=== PATIENT | male | born 1995 | race Caucasian/White ===

== ENCOUNTER 2024-04-03 23:56 | Inpatient (IN) | payer MEDICAID, OTHER ==
[~2024-04-03] VITALS: Ht 185.4 cm; Wt 102.6 kg
[~2024-04-03 23:56] MED LIST: CALCTAB5 PO; CATA0.1T PO; CLON-412 PO; DIPH50CA PO; DOCQ100C PO; ERYTGEL TOP; LORA10TA2 PO; NASA55AE; PERP2TAB PO; PROAAER INH; TRAZ50TA2 PO; ZOLO50TA PO
[2024-04-04 00:54] LABS: HEMOGLOBIN 14.3 g/dl (13.5-17.5); MEAN CORPUSCULAR HEMOGLOBIN 31.2 pg (27.0-33.0); MEAN CORPUSCULAR HGB CONC 34.9 g/dl (32.0-36.5); MEAN CORPUSCULAR VOLUME 89.5 fl (80.0-96.0); PLATELET COUNT, AUTOMATED 125 10^3/uL (150-450); RED BLOOD COUNT 4.58 10^6/uL (4.30-6.10); WHITE BLOOD COUNT 5.1 10^3/uL (4.0-10.0)
[2024-04-04 01:14] LABS: AMPHETAMINES LEVEL URINE NEGATIVE (NEGATIVE); BARBITURATES URINE NEGATIVE (NEGATIVE); BENZODIAZEPINES URINE NEGATIVE (NEGATIVE); COCAINE METABOLITE URINE NEGATIVE (NEGATIVE); METHADONE URINE NEGATIVE (NEGATIVE); OPIATES URINE NEGATIVE (NEGATIVE); PHENCYCLIDINE URINE NEGATIVE (NEGATIVE)
[2024-04-04 01:16] LABS: ETHYL ALCOHOL (ETHANOL) < 0.003 % (0.000-0.010)
[2024-04-04 01:18] LABS: ALKALINE PHOSPHATASE 69 U/L (46-116); ALT/SGPT 21 U/L (7.0-40); AST/SGOT 18 U/L (<34); BILIRUBIN,DIRECT 0.4 MG/DL (<0.4); BILIRUBIN,TOTAL 1.2 MG/DL (0.3-1.2); BLOOD UREA NITROGEN 10 MG/DL (9-23); CALCIUM LEVEL 9.2 MG/DL (8.5-10.1); CANNABINOIDS URINE POSITIVE (NEGATIVE); CARBON DIOXIDE LEVEL 28 MMOL/L (20-31); CHLORIDE LEVEL 108 MMOL/L (98-107); CREATININE FOR GFR 0.72 MG/DL (0.70-1.30); GLOMERULAR FILTRATION RATE > 60.0 (>60); GLUCOSE, FASTING 90 MG/DL (60-100); POTASSIUM SERUM 4.1 MMOL/L (3.5-5.1); SALICYLATE LEVEL < 3.0 MG/DL (<30); SODIUM LEVEL 142 MMOL/L (136-145); TOTAL PROTEIN 6.5 G/DL (5.7-8.2)
[2024-04-04] MEDS ORDERED: HOME MED LIST COMPLETE! XX SCH (04:55)
[2024-04-04] MEDS ORDERED: MOM 30ML SUSPENSION UDC PO PRN (06:00)
[2024-04-04] MEDS ORDERED: diphenhydrAMINE 25MG CAP PO PRN (06:00)
[2024-04-04] MEDS ORDERED: MAALOX 30 ML SUSP *UDC PO PRN (06:00)
[2024-04-04 09:58] VITALS: BP 148/80; TEMP 97.5; O2SAT 100
[2024-04-04] MEDS: ACETAMINOPHEN TAB 650MG DOSE (2X325MG) PO PRN (10:44)
[2024-04-04] MEDS: NICOTINE 21MG/24HR 1 EA TRANSDERMAL TD PRN (10:44)
[2024-04-04] MEDS: buPROPion **XL** TABLET 150MG (WELLBUTRIN XL) PO SCH (11:46)
[2024-04-04] MEDS: IBUPROFEN 400MG TAB PO PRN (11:49)
[2024-04-04 18:48] VITALS: BP 141/86; TEMP 98.2; O2SAT 100
[2024-04-04] MEDS: traZODone 50 MG TAB PO PRN (22:21)
[2024-04-05 06:19] VITALS: BP 126/77; TEMP 97.6; O2SAT 98
[2024-04-05 16:16] VITALS: BP 143/89; TEMP 98.6; O2SAT 99
[2024-04-05] MEDS: QUEtiapine FUMARATE 50MG TAB PO SCH (21:24)
[2024-04-06 06:20] VITALS: BP 151/83; TEMP 96.8; O2SAT 99
[2024-04-06 16:06] VITALS: BP 138/88; TEMP 97.8; O2SAT 98
[2024-04-06] MEDS: QUEtiapine FUMARATE 100 MG TAB PO SCH (20:30)
[2024-04-06] MEDS: traZODone 100 MG TAB PO PRN (20:30)
[2024-04-07 06:50] VITALS: BP 131/65; TEMP 97.6; O2SAT 100
[2024-04-07] MEDS: buPROPion **XL** TABLET 150MG (WELLBUTRIN XL) PO SCH (09:27)
[2024-04-08 06:46] VITALS: BP 134/73; TEMP 97.1; O2SAT 99
[2024-04-08 17:55] VITALS: BP 128/60; TEMP 98
[2024-04-08] MEDS: QUEtiapine FUMARATE 100 MG TAB PO SCH (20:54)
[2024-04-09 06:16] VITALS: BP 106/54; TEMP 97.3; O2SAT 100
[2024-04-09] MEDS ORDERED: QUET100T2 PO (09:52)
[2024-04-09] MEDS ORDERED: BUPR150T12 PO (09:52)
[2024-04-09] MEDS ORDERED: TRAZ-257 PO (09:52)
[2024-04-09] MEDS ORDERED: NICO21PAT TD (09:52)
== END 2024-04-09 11:42 | disposition home or self-care (01) | DRG 753 ==
LOC: M ED 23:56 → M ED INP 04-04 05:57 → M PSY 04-04 09:59
PROVIDERS: ADMIT Student in an Organized Health Care Education/Training Program; ATTEND Student in an Organized Health Care Education/Training Program
DX: F31.9 Bipolar disorder, unspecified (principal); Z91.148 Patient's other noncompliance with medication regimen for other reason; R45.851 Suicidal ideations; F90.9 Attention-deficit hyperactivity disorder, unspecified type; F15.90 Other stimulant use, unspecified, uncomplicated; F14.90 Cocaine use, unspecified, uncomplicated; F17.229 Nicotine dependence, chewing tobacco, with unspecified nicotine-induced disorders

== ENCOUNTER 2024-04-20 23:07 | Inpatient (IN) | payer MEDICAID ==
[~2024-04-20] VITALS: Ht 190.5 cm; Wt 103.0 kg
[~2024-04-20 23:07] MED LIST changes: +BUPR150T12 PO; +NICO21PAT TD; +QUET100T2 PO; +TRAZ-257 PO
[2024-04-20 23:36] LABS: HEMATOCRIT 39.4 % (42.0-52.0); MEAN CORPUSCULAR HEMOGLOBIN 30.7 pg (27.0-33.0); MEAN CORPUSCULAR HGB CONC 35.5 g/dl (32.0-36.5); MEAN CORPUSCULAR VOLUME 86.4 fl (80.0-96.0); PLATELET COUNT, AUTOMATED 110 10^3/uL (150-450); RED BLOOD COUNT 4.56 10^6/uL (4.30-6.10); WHITE BLOOD COUNT 4.5 10^3/uL (4.0-10.0)
[2024-04-21 00:05] LABS: ETHYL ALCOHOL (ETHANOL) 0.007 % (0.000-0.010)
[2024-04-21 00:07] LABS: ALBUMIN 4.1 G/DL (3.2-5.2); ALKALINE PHOSPHATASE 69 U/L (46-116); ALT/SGPT 19 U/L (7.0-40); AST/SGOT 21 U/L (<34); BILIRUBIN,DIRECT 0.5 MG/DL (<0.4); BILIRUBIN,TOTAL 1.3 MG/DL (0.3-1.2); BLOOD UREA NITROGEN 10 MG/DL (9-23); CARBON DIOXIDE LEVEL 25 MMOL/L (20-31); CHLORIDE LEVEL 105 MMOL/L (98-107); CREATININE FOR GFR 0.75 MG/DL (0.70-1.30); GLOMERULAR FILTRATION RATE > 60.0 (>60); GLUCOSE, FASTING 81 MG/DL (60-100); POTASSIUM SERUM 3.6 MMOL/L (3.5-5.1); SALICYLATE LEVEL < 3.0 MG/DL (<30); SODIUM LEVEL 140 MMOL/L (136-145); TOTAL PROTEIN 6.4 G/DL (5.7-8.2)
[2024-04-21 00:09] LABS: THYROID STIMULATING HORMONE 2.019 uIU/ML (0.55-4.78)
[2024-04-21 00:33] LABS: BARBITURATES URINE NEGATIVE (NEGATIVE); BENZODIAZEPINES URINE NEGATIVE (NEGATIVE); COCAINE METABOLITE URINE NEGATIVE (NEGATIVE); METHADONE URINE NEGATIVE (NEGATIVE); OPIATES URINE NEGATIVE (NEGATIVE); PHENCYCLIDINE URINE NEGATIVE (NEGATIVE)
[2024-04-21 00:34] LABS: AMPHETAMINES LEVEL URINE POSITIVE (NEGATIVE); CANNABINOIDS URINE POSITIVE (NEGATIVE)
[2024-04-21] MEDS ORDERED: traZODone 50 MG TAB PO PRN (01:05)
[2024-04-21] MEDS ORDERED: MAALOX 30 ML SUSP *UDC PO PRN (01:05)
[2024-04-21] MEDS ORDERED: MOM 30ML SUSPENSION UDC PO PRN (01:05)
[2024-04-21] MEDS ORDERED: MED REC CURRENTLY UNOBTAINABLE XX SCH (01:10)
[2024-04-21 03:03] VITALS: BP 132/62; TEMP 97.6; O2SAT 96
[2024-04-21] MEDS: buPROPion **XL** TABLET 150MG (WELLBUTRIN XL) PO SCH (09:00)
[2024-04-21] MEDS ORDERED: LORazepam 2 MG TAB PO PRN (11:45)
[2024-04-21] MEDS: MULTIVITAMINS/MINERALS THERAP 1 TAB PO SCH (12:17)
[2024-04-21] MEDS: THIAMINE 100 MG TAB PO SCH (12:17)
[2024-04-21] MEDS: FOLIC ACID 1MG TAB PO SCH (12:17)
[2024-04-21 16:16] LABS: FERRITIN 151.7 NG/ML (10.5-307.3); IRON (FE) 42 UG/DL (65-175)
[2024-04-21 16:18] LABS: VITAMIN B12 LEVEL 309 PG/ML (211-911)
[2024-04-21 16:30] LABS: HEPATITIS B SURFACE ANTIGEN NEGATIVE (NEGATIVE)
[2024-04-21 16:43] LABS: HIV 1&2 SCREEN NEGATIVE (NEGATIVE)
[2024-04-21 16:49] LABS: HEPATITIS B CORE ANTIBODY IGM NEGATIVE (NEGATIVE)
[2024-04-21 17:01] LABS: FOLATE 19.38 NG/ML (>5.4)
[2024-04-21 17:02] LABS: HEPATITIS C VIRUS ABY INDEX > 11.00 INDEX (<0.8)
[2024-04-21] MEDS: QUEtiapine FUMARATE 100 MG TAB PO PRN (21:52)
[2024-04-21] MEDS: traZODone 100 MG TAB PO PRN (21:52)
[2024-04-21 22:35] VITALS: BP 116/59
[2024-04-22] MEDS ORDERED: BUPR1FIL SL (06:18)
[2024-04-22] MEDS ORDERED: NICO1DIS12 TOP (06:18)
[2024-04-22] MEDS ORDERED: QUET100T2 PO (06:21)
[2024-04-22] MEDS ORDERED: BUPR-597 PO (06:21)
[2024-04-22] MEDS ORDERED: TRAZ-257 PO (06:21)
[2024-04-22] MEDS: BUPRENORPHINE/NALOXONE 8-2MG SUBLINGUAL TABLET(SUBOXONE) SL SCH (09:00)
[2024-04-22] MEDS: NICOTINE 21MG/24HR 1 EA TRANSDERMAL TD SCH (09:00)
[2024-04-22] MEDS ORDERED: HOME MED LIST COMPLETE! XX SCH (10:40)
[2024-04-22 16:00] VITALS: BP 131/71
[2024-04-22 18:51] VITALS: BP 131/71; TEMP 97.3
[2024-04-22] MEDS: QUEtiapine FUMARATE 100 MG TAB PO SCH (22:12)
[2024-04-23 06:11] VITALS: BP 126/71; TEMP 97.5; O2SAT 100
[2024-04-23 16:00] VITALS: BP 140/66
[2024-04-23 16:22] VITALS: BP 140/66; TEMP 97.2
[2024-04-24 06:35] VITALS: BP 121/58; TEMP 97.3; O2SAT 95
[2024-04-24 12:35] LABS: HCV RNA QUANTITATION <15 NOT DETECTED IU/mL (NOT DETECTED); HCV RNA log10 <1.18 NOT DETECTED Log IU/mL (NOT DETECTED)
[2024-04-24] MEDS: IBUPROFEN 400MG TAB PO PRN (17:30)
[2024-04-24 18:16] VITALS: BP 139/87; TEMP 97.3
[2024-04-24] MEDS: diphenhydrAMINE 25MG CAP PO PRN (22:25)
[2024-04-25 06:00] VITALS: BP 118/69; TEMP 96.9; O2SAT 98
[2024-04-25 17:09] VITALS: BP 101/88; TEMP 99.1; O2SAT 99
[2024-04-25] MEDS: ACETAMINOPHEN TAB 650MG DOSE (2X325MG) PO PRN (17:50)
== END 2024-04-26 12:40 | disposition home or self-care (01) | DRG 753 ==
LOC: EDBD 23:07 → M ED 23:07 → M ED INP 04-21 01:01 → M PSY 04-21 03:05
PROVIDERS: ADMIT Student in an Organized Health Care Education/Training Program; ATTEND Student in an Organized Health Care Education/Training Program
DX: F31.9 Bipolar disorder, unspecified (principal); F90.9 Attention-deficit hyperactivity disorder, unspecified type; F60.2 Antisocial personality disorder; R45.851 Suicidal ideations; F15.90 Other stimulant use, unspecified, uncomplicated; F14.90 Cocaine use, unspecified, uncomplicated; F17.290 Nicotine dependence, other tobacco product, uncomplicated; D69.6 Thrombocytopenia, unspecified; Z56.0 Unemployment, unspecified; Z76.5 Malingerer [conscious simulation]; Z79.899 Other long term (current) drug therapy

== ENCOUNTER 2024-04-27 21:57 | Emergency (ER) | payer MEDICAID ==
[~2024-04-27] VITALS: Ht 185.4 cm; Wt 101.6 kg
[~2024-04-27 21:57] MED LIST changes: +BUPR-597 PO; +BUPR1FIL SL; +NICO1DIS12 TOP
[2024-04-27] MEDS ORDERED: HOME MED LIST COMPLETE! XX SCH (22:50)
[2024-04-27] MEDS: BUPRENORPHINE/NALOXONE 8-2MG SUBLINGUAL TABLET(SUBOXONE) SL SCH (23:37)
[2024-04-27 23:50] LABS: ETHYL ALCOHOL (ETHANOL) < 0.003 % (0.000-0.010)
[2024-04-27 23:52] LABS: ALBUMIN 4.2 G/DL (3.2-5.2); ALKALINE PHOSPHATASE 70 U/L (46-116); ALT/SGPT 24 U/L (7.0-40); AST/SGOT 24 U/L (<34); BILIRUBIN,DIRECT 0.3 MG/DL (<0.4); BLOOD UREA NITROGEN 21 MG/DL (9-23); CALCIUM LEVEL 9.6 MG/DL (8.5-10.1); CARBON DIOXIDE LEVEL 29 MMOL/L (20-31); CHLORIDE LEVEL 104 MMOL/L (98-107); CREATININE FOR GFR 0.75 MG/DL (0.70-1.30); GLOMERULAR FILTRATION RATE > 60.0 (>60); GLUCOSE, FASTING 91 MG/DL (60-100); POTASSIUM SERUM 3.8 MMOL/L (3.5-5.1); SALICYLATE LEVEL < 3.0 MG/DL (<30); SODIUM LEVEL 139 MMOL/L (136-145); TOTAL PROTEIN 6.5 G/DL (5.7-8.2)
[2024-04-27 23:54] LABS: THYROID STIMULATING HORMONE 1.281 uIU/ML (0.55-4.78)
[2024-04-27 23:58] LABS: HEMATOCRIT 41.3 % (42.0-52.0); HEMOGLOBIN 14.6 g/dl (13.5-17.5); MEAN CORPUSCULAR HEMOGLOBIN 31.3 pg (27.0-33.0); MEAN CORPUSCULAR HGB CONC 35.4 g/dl (32.0-36.5); MEAN CORPUSCULAR VOLUME 88.4 fl (80.0-96.0); PLATELET COUNT, AUTOMATED 132 10^3/uL (150-450); RED BLOOD COUNT 4.67 10^6/uL (4.30-6.10)
[2024-04-28 00:13] LABS: BARBITURATES URINE NEGATIVE (NEGATIVE); BENZODIAZEPINES URINE NEGATIVE (NEGATIVE); COCAINE METABOLITE URINE NEGATIVE (NEGATIVE); METHADONE URINE NEGATIVE (NEGATIVE); OPIATES URINE NEGATIVE (NEGATIVE); PHENCYCLIDINE URINE NEGATIVE (NEGATIVE)
[2024-04-28 00:14] LABS: AMPHETAMINES LEVEL URINE POSITIVE (NEGATIVE); CANNABINOIDS URINE POSITIVE (NEGATIVE)
[2024-04-28] MEDS: traZODone 100 MG TAB PO ONE (01:50)
[2024-04-28] MEDS: QUEtiapine FUMARATE 100 MG TAB PO ONE (01:50)
[2024-04-28] MEDS: NICOTINE 21MG/24HR 1 EA TRANSDERMAL TD ONE (01:50)
[2024-04-28] MEDS: ACETAMINOPHEN TAB 650MG DOSE (2X325MG) PO ONE ×2 (01:51→21:27)
[2024-04-28] MEDS: ONDANSETRON 4MG TAB PO ONE (02:45)
[2024-04-28] MEDS ORDERED: cloNIDine 0.1MG TABLET PO PRN (22:40)
[2024-04-28] MEDS: QUEtiapine FUMARATE 100 MG TAB PO SCH (23:08)
[2024-04-28] MEDS: traZODone 100 MG TAB PO PRN (23:08)
[2024-04-29] MEDS: buPROPion **XL** TABLET 150MG (WELLBUTRIN XL) PO SCH (09:41)
[2024-04-29] MEDS: NICOTINE 21MG/24HR 1 EA TRANSDERMAL TD PRN (13:29)
[2024-04-29 13:40] VITALS: BP 141/88; TEMP 98.2; O2SAT 99
== END 2024-04-29 13:42 | disposition home or self-care (01) ==
LOC: M ED 21:57
DX: F32.A Depression, unspecified (principal); F19.14 Other psychoactive substance abuse with psychoactive substance-induced mood disorder; F90.9 Attention-deficit hyperactivity disorder, unspecified type; F31.9 Bipolar disorder, unspecified; B17.10 Acute hepatitis C without hepatic coma; Z79.899 Other long term (current) drug therapy

== ENCOUNTER 2024-09-26 16:11 | Emergency (ER) | payer MEDICAID, OTHER ==
[~2024-09-26] VITALS: Ht 185.4 cm; Wt 89.6 kg
[2024-09-26 16:35] LABS: HEMATOCRIT 47.7 % (42.0-52.0); MEAN CORPUSCULAR HEMOGLOBIN 30.2 pg (27.0-33.0); MEAN CORPUSCULAR HGB CONC 33.5 g/dl (32.0-36.5); PLATELET COUNT, AUTOMATED 211 10^3/uL (150-450); WHITE BLOOD COUNT 6.3 10^3/uL (4.0-10.0)
[2024-09-26 17:02] LABS: ETHYL ALCOHOL (ETHANOL) < 0.003 % (0.000-0.010)
[2024-09-26 17:03] LABS: SALICYLATE LEVEL < 3.0 MG/DL (<30)
[2024-09-26 17:04] LABS: ALBUMIN 3.8 G/DL (3.2-5.2); ALKALINE PHOSPHATASE 95 U/L (40-129); ALT/SGPT 13 U/L (7.0-40); AST/SGOT 9 U/L (<34); BILIRUBIN,DIRECT 0.2 MG/DL (<0.4); BILIRUBIN,TOTAL 0.5 MG/DL (0.3-1.2); BLOOD UREA NITROGEN 8 MG/DL (9-23); CALCIUM LEVEL 9.3 MG/DL (8.5-10.1); CARBON DIOXIDE LEVEL 27 MMOL/L (20-31); CHLORIDE LEVEL 109 MMOL/L (98-107); CREATININE FOR GFR 0.68 MG/DL (0.70-1.30); GLOMERULAR FILTRATION RATE > 60.0 (>60); GLUCOSE, FASTING 82 MG/DL (60-100); POTASSIUM SERUM 4.6 MMOL/L (3.5-5.1); SODIUM LEVEL 142 MMOL/L (136-145); TOTAL PROTEIN 7.3 G/DL (5.7-8.2)
[2024-09-26 17:05] LABS: THYROID STIMULATING HORMONE 1.216 uIU/ML (0.55-4.78)
[2024-09-26 17:24] LABS: AMPHETAMINES LEVEL URINE NEGATIVE (NEGATIVE); BARBITURATES URINE NEGATIVE (NEGATIVE); BENZODIAZEPINES URINE NEGATIVE (NEGATIVE); COCAINE METABOLITE URINE NEGATIVE (NEGATIVE); METHADONE URINE NEGATIVE (NEGATIVE)
[2024-09-26 17:25] LABS: OPIATES URINE NEGATIVE (NEGATIVE); PHENCYCLIDINE URINE NEGATIVE (NEGATIVE)
[2024-09-26 17:31] LABS: CANNABINOIDS URINE POSITIVE (NEGATIVE)
[2024-09-26] MEDS ORDERED: HOME MED LIST COMPLETE! XX SCH (18:00)
[2024-09-26] MEDS ORDERED: MED REC COMMENT (18:00)
[2024-09-27 08:27] VITALS: BP 137/83; TEMP 97.5; O2SAT 97
== END 2024-09-27 10:50 | disposition home or self-care (01) ==
LOC: M ED 16:11
DX: F12.188 Cannabis abuse with other cannabis-induced disorder (principal); F60.2 Antisocial personality disorder; Z76.5 Malingerer [conscious simulation]; F19.10 Other psychoactive substance abuse, uncomplicated; Z59.00 Homelessness unspecified; F32.A Depression, unspecified; F90.9 Attention-deficit hyperactivity disorder, unspecified type; Z79.899 Other long term (current) drug therapy

== ENCOUNTER 2024-11-14 23:02 | Inpatient (IN) | payer OTHER ==
[~2024-11-14] VITALS: Ht 185.4 cm; Wt 88.0 kg
[~2024-11-14 23:02] MED LIST changes: +MED REC COMMENT
[2024-11-15 00:25] LABS: ETHYL ALCOHOL (ETHANOL) 0.004 % (0.000-0.010)
[2024-11-15 00:26] LABS: SALICYLATE LEVEL < 3.0 MG/DL (<30)
[2024-11-15 00:27] LABS: ALBUMIN 3.5 G/DL (3.2-5.2); ALKALINE PHOSPHATASE 86 U/L (40-129); ALT/SGPT 12 U/L (7.0-40); AST/SGOT 11 U/L (<34); BILIRUBIN,DIRECT 0.2 MG/DL (<0.4); BILIRUBIN,TOTAL 0.5 MG/DL (0.3-1.2); BLOOD UREA NITROGEN 14 MG/DL (9-23); CARBON DIOXIDE LEVEL 28 MMOL/L (20-31); CHLORIDE LEVEL 108 MMOL/L (98-107); CREATININE FOR GFR 0.71 MG/DL (0.70-1.30); GLOMERULAR FILTRATION RATE > 60.0 (>60); GLUCOSE, FASTING 123 MG/DL (60-100); POTASSIUM SERUM 3.6 MMOL/L (3.5-5.1); SODIUM LEVEL 144 MMOL/L (136-145)
[2024-11-15 00:29] LABS: THYROID STIMULATING HORMONE 1.008 uIU/ML (0.55-4.78)
[2024-11-15 00:30] LABS: HEMATOCRIT 37.3 % (42.0-52.0); HEMOGLOBIN 12.8 g/dl (13.5-17.5); MEAN CORPUSCULAR HEMOGLOBIN 29.8 pg (27.0-33.0); MEAN CORPUSCULAR HGB CONC 34.3 g/dl (32.0-36.5); MEAN CORPUSCULAR VOLUME 86.7 fl (80.0-96.0); PLATELET COUNT, AUTOMATED 127 10^3/uL (150-450)
[2024-11-15 02:38] LABS: BARBITURATES URINE NEGATIVE (NEGATIVE); BENZODIAZEPINES URINE NEGATIVE (NEGATIVE); METHADONE URINE NEGATIVE (NEGATIVE); OPIATES URINE NEGATIVE (NEGATIVE); PHENCYCLIDINE URINE NEGATIVE (NEGATIVE)
[2024-11-15 02:39] LABS: COCAINE METABOLITE URINE NEGATIVE (NEGATIVE)
[2024-11-15 02:44] LABS: AMPHETAMINES LEVEL URINE POSITIVE (NEGATIVE); CANNABINOIDS URINE POSITIVE (NEGATIVE)
[2024-11-15] MEDS: NICOTINE 21MG/24HR 1 EA TRANSDERMAL TD SCH (09:00)
[2024-11-15] MEDS ORDERED: BUPR-365 PO (12:02)
[2024-11-15] MEDS ORDERED: BUPR1FIL37 SL (12:02)
[2024-11-15] MEDS ORDERED: HOME MED LIST COMPLETE! XX SCH (12:05)
[2024-11-15] MEDS ORDERED: IBUPROFEN 400MG TAB PO PRN (13:15)
[2024-11-15] MEDS ORDERED: MOM 30ML SUSPENSION UDC PO PRN (13:15)
[2024-11-15] MEDS ORDERED: MAALOX 30 ML SUSP *UDC PO PRN (13:15)
[2024-11-15 14:21] VITALS: BP 149/96; TEMP 97.4; O2SAT 99
[2024-11-15] MEDS: traZODone 50 MG TAB PO PRN (21:08)
[2024-11-15] MEDS: diphenhydrAMINE 25MG CAP PO PRN (21:08)
[2024-11-16 06:31] VITALS: BP 144/81; TEMP 97.2; O2SAT 97
[2024-11-16 14:02] LABS: FOLATE 20.61 NG/ML (>5.4)
[2024-11-16 17:00] LABS: IRON (FE) 65 UG/DL (65-175); PERCENT SATURATION 28.4 % (19.7-50.0); TOTAL IRON BINDING CAPACITY 229 UG/DL (250-425)
[2024-11-16 17:02] LABS: FERRITIN 175.7 NG/ML (10.5-307.3)
[2024-11-16 17:03] LABS: VITAMIN B12 LEVEL 411 PG/ML (211-911)
[2024-11-17] MEDS ORDERED: cloNIDine 0.1MG TABLET PO PRN (14:05)
[2024-11-17] MEDS: buPROPion **XL** TABLET 150MG (WELLBUTRIN XL) PO SCH (15:55)
[2024-11-17] MEDS: QUEtiapine FUMARATE 100 MG TAB PO SCH (20:08)
[2024-11-17] MEDS: ACETAMINOPHEN 325 MG TAB PO PRN (20:09)
[2024-11-18] MEDS: NICOTINE POLACRILEX 2 MG GUM PO PRN (20:56)
== END 2024-11-19 11:38 | disposition home or self-care (01) | DRG 753 ==
LOC: M ED 23:02 → M ED INP 11-15 13:12 → M PSY 11-15 14:25
PROVIDERS: ADMIT Psychiatry & Neurology Psychiatry; ATTEND Psychiatry & Neurology Psychiatry
DX: F31.9 Bipolar disorder, unspecified (principal); F60.2 Antisocial personality disorder; R45.851 Suicidal ideations; R45.850 Homicidal ideations; F15.90 Other stimulant use, unspecified, uncomplicated; F14.90 Cocaine use, unspecified, uncomplicated; Z79.899 Other long term (current) drug therapy; D69.6 Thrombocytopenia, unspecified; D64.9 Anemia, unspecified

== ENCOUNTER 2025-01-17 13:57 | Emergency (ER) | payer OTHER, MEDICAID ==
[~2025-01-17] VITALS: Ht 185.4 cm; Wt 90.8 kg
[~2025-01-17 13:57] MED LIST changes: +BUPR-365 PO; +BUPR1FIL37 SL
[2025-01-17 14:05] VITALS: BP 130/94; TEMP 98.4; O2SAT 99
[2025-01-17] MEDS: KETOROLAC 60MG 2ML VIAL IM ONE (15:35)
[2025-01-17] MEDS ORDERED: AMOX875T2 PO (15:37)
== END 2025-01-17 15:41 | disposition home or self-care (01) ==
LOC: M ED 13:57
DX: K04.7 Periapical abscess without sinus (principal); K12.0 Recurrent oral aphthae; Z79.2 Long term (current) use of antibiotics; Z79.899 Other long term (current) drug therapy

== ENCOUNTER 2025-01-27 19:35 | Emergency (ER) | payer OTHER ==
[~2025-01-27] VITALS: Ht 185.4 cm; Wt 93.8 kg
[~2025-01-27 19:35] MED LIST changes: +AMOX875T2 PO
[2025-01-27 19:55] VITALS: BP 167/87; TEMP 97.6; O2SAT 99
== END 2025-01-27 22:15 | disposition left against medical advice (07) ==
LOC: EDBD 19:35 → M ED 19:35
DX: Z53.21 Procedure and treatment not carried out due to patient leaving prior to being seen by health care provider (principal)

== ENCOUNTER 2025-01-31 21:15 | Inpatient (IN) | payer OTHER ==
[~2025-01-31] VITALS: Ht 185.4 cm; Wt 91.2 kg
[2025-01-31 21:53] LABS: HEMATOCRIT 36.9 % (42.0-52.0); HEMOGLOBIN 13.1 g/dl (13.5-17.5); MEAN CORPUSCULAR HGB CONC 35.5 g/dl (32.0-36.5); MEAN CORPUSCULAR VOLUME 84.6 fl (80.0-96.0); PLATELET COUNT, AUTOMATED 141 10^3/uL (150-450); RED BLOOD COUNT 4.36 10^6/uL (4.30-6.10); WHITE BLOOD COUNT 7.4 10^3/uL (4.0-10.0)
[2025-01-31 22:15] LABS: ETHYL ALCOHOL (ETHANOL) < 0.003 % (0.000-0.010)
[2025-01-31 22:16] LABS: SALICYLATE LEVEL < 3.0 MG/DL (<30)
[2025-01-31 22:17] LABS: ALBUMIN 3.9 G/DL (3.2-5.2); ALKALINE PHOSPHATASE 68 U/L (40-129); ALT/SGPT 24 U/L (7.0-40); AST/SGOT 36 U/L (<34); BILIRUBIN,DIRECT 0.3 MG/DL (<0.4); BILIRUBIN,TOTAL 0.8 MG/DL (0.3-1.2); BLOOD UREA NITROGEN 19 MG/DL (9-23); CALCIUM LEVEL 9.4 MG/DL (8.5-10.1); CARBON DIOXIDE LEVEL 29 MMOL/L (20-31); CHLORIDE LEVEL 99 MMOL/L (98-107); CREATININE FOR GFR 0.67 MG/DL (0.70-1.30); GLOMERULAR FILTRATION RATE > 60.0 (>60); GLUCOSE, FASTING 108 MG/DL (60-100); POTASSIUM SERUM 3.5 MMOL/L (3.5-5.1); SODIUM LEVEL 138 MMOL/L (136-145); TOTAL PROTEIN 6.6 G/DL (5.7-8.2)
[2025-01-31 22:19] LABS: THYROID STIMULATING HORMONE 4.809 uIU/ML (0.55-4.78)
[2025-02-01 00:32] LABS: BARBITURATES URINE NEGATIVE (NEGATIVE); BENZODIAZEPINES URINE NEGATIVE (NEGATIVE)
[2025-02-01 00:33] LABS: AMPHETAMINES LEVEL URINE POSITIVE (NEGATIVE); CANNABINOIDS URINE POSITIVE (NEGATIVE); COCAINE METABOLITE URINE NEGATIVE (NEGATIVE); METHADONE URINE NEGATIVE (NEGATIVE); OPIATES URINE NEGATIVE (NEGATIVE); PHENCYCLIDINE URINE NEGATIVE (NEGATIVE)
[2025-02-01] MEDS ORDERED: MOM 30ML SUSPENSION UDC PO PRN (02:35)
[2025-02-01] MEDS ORDERED: OLANZapine ORAL DISINTEGRATING TAB 5MG PO PRN (02:35)
[2025-02-01] MEDS ORDERED: MAALOX 30 ML SUSP *UDC PO PRN (02:35)
[2025-02-01] MEDS ORDERED: ACETAMINOPHEN 325 MG TAB PO PRN (02:35)
[2025-02-01 03:03] VITALS: TEMP 97.1; O2SAT 96
[2025-02-01 03:30] VITALS: BP 149/79; TEMP 97.1; O2SAT 96
[2025-02-01] MEDS: diphenhydrAMINE 25MG CAP PO PRN (03:36)
[2025-02-01] MEDS: IBUPROFEN 400MG TAB PO PRN (03:37)
[2025-02-01] MEDS: traZODone 50 MG TAB PO PRN (03:38)
[2025-02-01] MEDS ORDERED: HOME MED LIST COMPLETE! XX SCH (20:15)
[2025-02-01] MEDS: QUEtiapine FUMARATE 50MG TAB PO SCH (20:43)
[2025-02-01] MEDS ORDERED: cloNIDine 0.1MG TABLET PO PRN (21:30)
[2025-02-02] MEDS: BUPRENORPHINE/NALOXONE 2-0.5MG SUBLINGUAL TABLET(SUBOXONE) SL SCH (03:42)
[2025-02-02] MEDS ORDERED: buPROPion **XL** TABLET 150MG (WELLBUTRIN XL) PO SCH (09:00)
[2025-02-02] MEDS: buPROPion **XL** TABLET 150MG (WELLBUTRIN XL) PO SCH (09:18)
[2025-02-02] MEDS: NICOTINE POLACRILEX 2 MG GUM PO PRN (15:36)
[2025-02-02] MEDS: QUEtiapine FUMARATE 100 MG TAB PO SCH (21:02)
[2025-02-02] MEDS: traZODone 50 MG TAB PO PRN (21:05)
[2025-02-03 06:40] VITALS: BP 122/60; TEMP 97.1; O2SAT 98
[2025-02-05] MEDS ORDERED: CLON-412 PO (07:52)
[2025-02-05] MEDS ORDERED: BUPR-365 PO (07:52)
== END 2025-02-05 11:07 | disposition home or self-care (01) | DRG 753 ==
LOC: M ED 21:15 → M ED INP 02-01 02:33 → M PSY 02-01 03:02
PROVIDERS: ADMIT Psychiatry & Neurology Neurology; ATTEND Psychiatry & Neurology Neurology
DX: F31.5 Bipolar disorder, current episode depressed, severe, with psychotic features (principal); F15.20 Other stimulant dependence, uncomplicated; F41.9 Anxiety disorder, unspecified; F90.9 Attention-deficit hyperactivity disorder, unspecified type; F60.2 Antisocial personality disorder; Z76.5 Malingerer [conscious simulation]; Z91.199 Patient's noncompliance with other medical treatment and regimen due to unspecified reason; Z79.899 Other long term (current) drug therapy

== ENCOUNTER 2025-02-26 15:45 | Inpatient (IN) | payer MEDICAID, OTHER ==
[~2025-02-26] VITALS: Ht 185.4 cm; Wt 81.8 kg
[2025-02-26 15:54] VITALS: TEMP 98
[2025-02-26 16:35] LABS: HEMATOCRIT 44.9 % (42.0-52.0); HEMOGLOBIN 15.2 g/dl (13.5-17.5); MEAN CORPUSCULAR HEMOGLOBIN 29.4 pg (27.0-33.0); MEAN CORPUSCULAR HGB CONC 33.9 g/dl (32.0-36.5); MEAN CORPUSCULAR VOLUME 86.8 fl (80.0-96.0); PLATELET COUNT, AUTOMATED 180 10^3/uL (150-450); RED BLOOD COUNT 5.17 10^6/uL (4.30-6.10); WHITE BLOOD COUNT 7.1 10^3/uL (4.0-10.0)
[2025-02-26 16:49] LABS: ETHYL ALCOHOL (ETHANOL) < 0.003 % (0.000-0.010)
[2025-02-26 16:51] LABS: ALBUMIN 3.8 G/DL (3.2-5.2); ALKALINE PHOSPHATASE 85 U/L (40-129); ALT/SGPT 18 U/L (7.0-40); AST/SGOT 11 U/L (<34); BILIRUBIN,DIRECT 0.3 MG/DL (<0.4); BILIRUBIN,TOTAL 0.8 MG/DL (0.3-1.2); BLOOD UREA NITROGEN 8 MG/DL (9-23); CALCIUM LEVEL 8.7 MG/DL (8.5-10.1); CARBON DIOXIDE LEVEL 29 MMOL/L (20-31); CHLORIDE LEVEL 103 MMOL/L (98-107); GLOMERULAR FILTRATION RATE > 90.0 (>60); GLUCOSE, FASTING 83 MG/DL (60-100); POTASSIUM SERUM 4.5 MMOL/L (3.5-5.1); SALICYLATE LEVEL < 3.0 MG/DL (<30); SODIUM LEVEL 139 MMOL/L (136-145); TOTAL PROTEIN 6.7 G/DL (5.7-8.2)
[2025-02-26 16:53] LABS: THYROID STIMULATING HORMONE 0.869 uIU/ML (0.55-4.78)
[2025-02-26 16:59] LABS: AMPHETAMINES LEVEL URINE NEGATIVE (NEGATIVE); BARBITURATES URINE NEGATIVE (NEGATIVE); COCAINE METABOLITE URINE NEGATIVE (NEGATIVE)
[2025-02-26 17:00] LABS: BENZODIAZEPINES URINE NEGATIVE (NEGATIVE); METHADONE URINE NEGATIVE (NEGATIVE); OPIATES URINE NEGATIVE (NEGATIVE); PHENCYCLIDINE URINE NEGATIVE (NEGATIVE)
[2025-02-26 17:03] LABS: CANNABINOIDS URINE POSITIVE (NEGATIVE)
[2025-02-26 17:50] VITALS: BP 170/110
[2025-02-26] MEDS: cloNIDine 0.1MG TABLET PO ONE ×2 (17:50→19:25)
[2025-02-26] MEDS ORDERED: BUPR150T12 PO (18:04)
[2025-02-26] MEDS ORDERED: BUPR1FIL SL (18:04)
[2025-02-26] MEDS ORDERED: QUET100T2 PO (18:04)
[2025-02-26] MEDS ORDERED: HOME MED LIST COMPLETE! XX SCH (18:05)
[2025-02-26] MEDS ORDERED: traZODone 50 MG TAB PO PRN (19:00)
[2025-02-26] MEDS ORDERED: MAALOX 30 ML SUSP *UDC PO PRN (19:00)
[2025-02-26] MEDS ORDERED: MOM 30ML SUSPENSION UDC PO PRN (19:00)
[2025-02-26] MEDS ORDERED: ACETAMINOPHEN 325 MG TAB PO PRN (19:00)
[2025-02-26] MEDS ORDERED: IBUPROFEN 400MG TAB PO PRN (19:00)
[2025-02-26 20:53] VITALS: BP 140/88; O2SAT 97
[2025-02-27] MEDS ORDERED: cloNIDine 0.1MG TABLET PO PRN (14:30)
[2025-02-27] MEDS: buPROPion **XL** TABLET 150MG (WELLBUTRIN XL) PO SCH (15:02)
[2025-02-27] MEDS: NICOTINE POLACRILEX 2 MG GUM PO PRN (16:24)
[2025-02-27] MEDS: diphenhydrAMINE 25MG CAP PO PRN (20:23)
[2025-02-27] MEDS: traZODone 50 MG TAB PO PRN (20:23)
[2025-02-27] MEDS: QUEtiapine FUMARATE 100 MG TAB PO SCH (20:23)
[2025-03-01] MEDS ORDERED: HYDR-4570 PO (12:12)
[2025-03-01] MEDS ORDERED: QUET100T2 PO (12:12)
[2025-03-01] MEDS ORDERED: TRAZ-252 PO (12:12)
[2025-03-01] MEDS ORDERED: CLONI1TA PO (12:12)
[2025-03-01] MEDS ORDERED: BUPR150T12 PO (12:12)
== END 2025-03-01 13:20 | disposition home or self-care (01) | DRG 753 ==
LOC: M ED 15:45 → M ED INP 18:56 → M PSY 21:42
PROVIDERS: ADMIT Psychiatry & Neurology Neurology; ATTEND Psychiatry & Neurology Neurology
DX: F31.30 Bipolar disorder, current episode depressed, mild or moderate severity, unspecified (principal); F15.20 Other stimulant dependence, uncomplicated; F60.2 Antisocial personality disorder; F41.9 Anxiety disorder, unspecified; R45.851 Suicidal ideations; F17.220 Nicotine dependence, chewing tobacco, uncomplicated; Z79.899 Other long term (current) drug therapy

== ENCOUNTER 2025-03-25 03:09 | Emergency (ER) | payer MEDICAID, OTHER ==
[~2025-03-25] VITALS: Ht 185.4 cm; Wt 94.0 kg
[~2025-03-25 03:09] MED LIST changes: -BUPR-597 PO; +BUPR-766 PO; +CLONI1TA PO; +HYDR-4570 PO; +TRAZ-252 PO
[2025-03-25] MEDS: NS (Normal Saline) 0.9% 1,000 ML IV ONE (04:16)
[2025-03-25 04:36] LABS: BASO % 0.2 % (0.0-1.0); EOS # 0.1 10^3/uL (0.0-0.5); EOS % 1.3 % (0.0-3.0); HEMATOCRIT 38.7 % (42.0-52.0); HEMOGLOBIN 13.4 g/dl (13.5-17.5); LYMPH % 18.8 % (24.0-44.0); MEAN CORPUSCULAR HEMOGLOBIN 30.8 pg (27.0-33.0); MEAN CORPUSCULAR HGB CONC 34.6 g/dl (32.0-36.5); MONO # 0.3 10^3/uL (0.0-0.8); MONO % 6.3 % (2.0-8.0); NEUTROPHILS # 3.9 10^3/uL (1.5-8.5); PLATELET COUNT, AUTOMATED 121 10^3/uL (150-450); RED BLOOD COUNT 4.35 10^6/uL (4.30-6.10); WHITE BLOOD COUNT 5.4 10^3/uL (4.0-10.0)
[2025-03-25 04:56] LABS: ETHYL ALCOHOL (ETHANOL) < 0.003 % (0.000-0.010)
[2025-03-25 04:58] LABS: ALBUMIN 3.6 G/DL (3.2-5.2); ALKALINE PHOSPHATASE 63 U/L (40-129); ALT/SGPT 16 U/L (7.0-40); AST/SGOT 11 U/L (<34); BILIRUBIN,DIRECT 0.2 MG/DL (<0.4); BILIRUBIN,TOTAL 0.4 MG/DL (0.3-1.2); BLOOD UREA NITROGEN 19 MG/DL (9-23); CALCIUM LEVEL 8.3 MG/DL (8.5-10.1); CARBON DIOXIDE LEVEL 28 MMOL/L (20-31); CHLORIDE LEVEL 107 MMOL/L (98-107); CPK CREATINE PHOSPHOKINASE 47 U/L (46-171); GLOMERULAR FILTRATION RATE > 90.0 (>60); GLUCOSE, FASTING 104 MG/DL (60-100); POTASSIUM SERUM 3.6 MMOL/L (3.5-5.1); SALICYLATE LEVEL < 3.0 MG/DL (<30); SODIUM LEVEL 144 MMOL/L (136-145)
[2025-03-25 05:00] LABS: THYROID STIMULATING HORMONE 4.608 uIU/ML (0.55-4.78)
[2025-03-25 07:23] LABS: BARBITURATES URINE NEGATIVE (NEGATIVE); BENZODIAZEPINES URINE NEGATIVE (NEGATIVE); METHADONE URINE NEGATIVE (NEGATIVE); OPIATES URINE NEGATIVE (NEGATIVE); PHENCYCLIDINE URINE NEGATIVE (NEGATIVE)
[2025-03-25 07:24] LABS: AMPHETAMINES LEVEL URINE POSITIVE (NEGATIVE); CANNABINOIDS URINE POSITIVE (NEGATIVE); COCAINE METABOLITE URINE POSITIVE (NEGATIVE)
[2025-03-25] MEDS ORDERED: NARC1SPR (08:50)
[2025-03-25 08:59] VITALS: BP 128/66; TEMP 97.3; O2SAT 98
== END 2025-03-25 09:04 | disposition home or self-care (01) ==
LOC: M ED 03:09 → EDBD 03:09 → M ED 09:04
DX: F11.20 Opioid dependence, uncomplicated (principal); F14.10 Cocaine abuse, uncomplicated; F15.10 Other stimulant abuse, uncomplicated; F12.10 Cannabis abuse, uncomplicated; I45.81 Long QT syndrome; F32.A Depression, unspecified; F31.9 Bipolar disorder, unspecified; F17.200 Nicotine dependence, unspecified, uncomplicated; Z79.899 Other long term (current) drug therapy

== ENCOUNTER 2025-09-19 01:17 | Emergency (ER) | payer OTHER ==
[~2025-09-19] VITALS: Ht 185.4 cm; Wt 84.5 kg
[~2025-09-19 01:17] MED LIST changes: +HYDR-3364 PO; -HYDR-4570 PO; +NARC1SPR
[2025-09-19 02:03] LABS: PLATELET COUNT, AUTOMATED 137 10^3/uL (150-450)
[2025-09-19 02:20] LABS: ETHYL ALCOHOL (ETHANOL) < 0.003 % (0.000-0.010)
[2025-09-19 02:22] LABS: ALT/SGPT 13 U/L (7.0-40); AST/SGOT 16 U/L (<34); CALCIUM LEVEL 8.6 MG/DL (8.5-10.1); CARBON DIOXIDE LEVEL 26 MMOL/L (20-31); CHLORIDE LEVEL 108 MMOL/L (98-107); CREATININE FOR GFR 0.77 MG/DL (0.70-1.30); GLOMERULAR FILTRATION RATE > 90.0 (>60); POTASSIUM SERUM 4.0 MMOL/L (3.5-5.1); SALICYLATE LEVEL < 3.0 MG/DL (<30); SODIUM LEVEL 144 MMOL/L (136-145)
[2025-09-19 03:06] VITALS: BP 130/77; TEMP 96.7; O2SAT 100
[2025-09-19 03:24] LABS: PHENCYCLIDINE URINE NEGATIVE (NEGATIVE)
[2025-09-19 03:25] LABS: AMPHETAMINES LEVEL URINE POSITIVE (NEGATIVE); BARBITURATES URINE NEGATIVE (NEGATIVE); BENZODIAZEPINES URINE NEGATIVE (NEGATIVE); CANNABINOIDS URINE POSITIVE (NEGATIVE); COCAINE METABOLITE URINE NEGATIVE (NEGATIVE); METHADONE URINE NEGATIVE (NEGATIVE); OPIATES URINE NEGATIVE (NEGATIVE)
[2025-09-19] MEDS ORDERED: HOME MED LIST COMPLETE! XX SCH (09:20)
== END 2025-09-19 12:03 | disposition home or self-care (01) ==
LOC: M ED 01:17
DX: F32.A Depression, unspecified (principal); F17.200 Nicotine dependence, unspecified, uncomplicated; F19.10 Other psychoactive substance abuse, uncomplicated

== ENCOUNTER 2025-10-12 06:05 | Emergency (ER) | payer OTHER ==
[~2025-10-12] VITALS: Ht 185.4 cm; Wt 90.9 kg
[2025-10-12 06:42] LABS: PLATELET COUNT, AUTOMATED 145 10^3/uL (150-450)
[2025-10-12 07:00] LABS: BARBITURATES URINE NEGATIVE (NEGATIVE); BENZODIAZEPINES URINE NEGATIVE (NEGATIVE); COCAINE METABOLITE URINE NEGATIVE (NEGATIVE); METHADONE URINE NEGATIVE (NEGATIVE); OPIATES URINE NEGATIVE (NEGATIVE); PHENCYCLIDINE URINE NEGATIVE (NEGATIVE)
[2025-10-12 07:02] LABS: AMPHETAMINES LEVEL URINE POSITIVE (NEGATIVE); CANNABINOIDS URINE POSITIVE (NEGATIVE)
[2025-10-12 07:04] LABS: SALICYLATE LEVEL < 3.0 MG/DL (<30)
[2025-10-12 07:05] LABS: ALT/SGPT 16 U/L (7.0-40); AST/SGOT 20 U/L (<34); CALCIUM LEVEL 8.8 MG/DL (8.5-10.1); CARBON DIOXIDE LEVEL 27 MMOL/L (20-31); CHLORIDE LEVEL 105 MMOL/L (98-107); CREATININE FOR GFR 0.80 MG/DL (0.70-1.30); GLOMERULAR FILTRATION RATE > 90.0 (>60); POTASSIUM SERUM 4.1 MMOL/L (3.5-5.1); SODIUM LEVEL 141 MMOL/L (136-145)
[2025-10-12 07:07] LABS: ETHYL ALCOHOL (ETHANOL) < 0.003 % (0.000-0.010)
[2025-10-12 08:54] VITALS: BP 137/96; TEMP 97.7; O2SAT 99
== END 2025-10-12 08:57 | disposition home or self-care (01) ==
LOC: M ED 08:46
DX: F32.A Depression, unspecified (principal); F90.9 Attention-deficit hyperactivity disorder, unspecified type; F41.9 Anxiety disorder, unspecified; F17.200 Nicotine dependence, unspecified, uncomplicated; F19.10 Other psychoactive substance abuse, uncomplicated